=== PATIENT | female | born 1970 | race Caucasian/White ===

== ENCOUNTER 2017-10-25 17:27 | Outpatient (REF) | payer OTHER, SELFPAY ==
[2017-10-25 21:10] LABS: Abs Immature Grans 0.01 k/cumm (0.0-0.09); Absolute Basophil Count 0.02 k/cumm (0.0-0.2); Absolute Eosinophil Count 0.21 k/cumm (0.0-0.7); Absolute Lymphocyte Count 2.18 k/cumm (1.2-3.4); Absolute Monocyte Count 0.72 k/cumm (0.11-0.7); Absolute Neutrophil Count 5.48 k/cumm (1.2-6.7); Basophils % 0.2; Eosinophils % 2.4; HCT 42.5 % (36.0-46.0); HGB 13.8 g/dL (12.0-15.5); Immature Grans % 0.1; Lymphocytes % 25.3; Mean Corp. HGB Concentration 32.5 g/dL (32.0-36.0); Mean Corpuscular Hemoglobin 28.4 pg (27.0-33.0); Mean Corpuscular Volume 87.4 fL (80-95); Mean Platelet Volume 10.4 fL (8.0-11.0); Monocytes % 8.4; Neutrophils % 63.6; Platelet Count 378 x1000/uL (130-400); RBC 4.86 m/cumm (4.00-5.20); RBC Distribution Width 14.3 % (11.7-14.6); White Blood Cell Count 8.62 k/cumm (4.4-10.8)
[2017-10-25 21:25] LABS: Iron 63 ug/dL (50-175); Total Iron Binding Capacity 372 ug/dL (250-450); Transferrin Sat 17 % (15-50)
[2017-10-25 21:38] LABS: Anion Gap 10.9 mmol/L (3-11); BUN 17 mg/dL (7-18); CO2 25.1 mmol/L (21.0-32.0); CREATININE 0.87 mg/dL (0.55-1.02); Calcium 9.2 mg/dL (8.5-10.1); Chloride 104 mmol/L (98-107); Ferritin 114 ng/mL (8-388); Glucose 83 mg/dL (70-100); Potassium 4.1 mmol/L (3.5-5.1); Sodium 140 mmol/L (136-145); TSH (W/Ref FT4) 4.79 uIU/mL (0.358-3.74)
[2017-10-25 21:55] LABS: FREE T4 0.84 ng/dL (0.76-1.46)
== END 2017-10-25 17:47 ==
LOC: NCHCN 17:27
PROVIDERS: PCP Nurse Practitioner Family; Visit Provider Nurse Practitioner Family
DX: R55 Syncope and collapse (principal); G47.62 Sleep related leg cramps; G43.909 Migraine, unspecified, not intractable, without status migrainosus; I10 Essential (primary) hypertension; E66.9 Obesity, unspecified
CPT/HCPCS: 80048; 82728; 83540; 83550; 83735; 84439; 84443; 85025

== ENCOUNTER 2017-11-16 09:56 | Outpatient (REF) | payer OTHER, SELFPAY ==
--- NOTE | 2017-11-16 09:30 | PAPFT_PTH ---
PATIENT: Madison Yost LOC: [facility] U#:[id number] AGE/SX: 47/F ROOM: RE11/16/[address]: ELLY Leone : 1970 BED: DIS: 11/16/2017 SPEC #: [id number] RECD: 11/16/17 12:56 STATUS: SHARONA REQ #: [id number] FUNMILAYO: 11/16/17 09:[address]: Amira Palomino DEPT: [facility] Cytology RECD BY: Yara Doss ENTERED: 11/16/17 12:56 SP TYPE: PAPFT OTHR DR: Sheron Benoit Tissues: 1 - CX/ENDOCX FOR PAP SMEARS Procedures: PAP THIN PREP/[facility] Screening HPV DNA PROBE Comments: [id number]
== END 2017-11-16 10:16 ==
LOC: LBN 09:56
PROVIDERS: PCP Nurse Practitioner Family; Visit Provider Nurse Practitioner Family
DX: Z12.4 Encounter for screening for malignant neoplasm of cervix (principal); Z11.51 Encounter for screening for human papillomavirus (HPV)
CPT/HCPCS: 88142; 87624

== ENCOUNTER 2019-06-21 09:00 | Outpatient (REF) | payer OTHER, SELFPAY ==
[2019-06-21 21:43] LABS: Anion Gap 8.5 mmol/L (3-11); BUN 16 mg/dL (7-18); CO2 27.5 mmol/L (21.0-32.0); CREATININE 0.99 mg/dL (0.55-1.02); Calcium 9.5 mg/dL (8.5-10.1); Calculated LDL 162 mg/dL (<100); Chloride 102 mmol/L (98-107); Cholesterol 250 mg/dL (<200); Estimated GFR 59.14 (mL/min/1.73m2); Glucose 116 mg/dL (74-106); HDL Cholesterol 55 mg/dL (40-60); Potassium 4.7 mmol/L (3.5-5.1); Sodium 138 mmol/L (136-145); TSH 3.54 uIU/mL (0.36-3.74); Triglyceride 165 mg/dL (<150); Vitamin B12 352 pg/mL (193-986)
== END 2019-06-21 09:20 ==
LOC: NCHCN 09:00
PROVIDERS: PCP Nurse Practitioner Family; Visit Provider Nurse Practitioner Family
DX: Z00.00 Encounter for general adult medical examination without abnormal findings (principal); E03.9 Hypothyroidism, unspecified; I10 Essential (primary) hypertension; E66.9 Obesity, unspecified
CPT/HCPCS: 80048; 80061; 82607; 84443

== ENCOUNTER 2020-12-17 10:31 | Outpatient (REF) | payer OTHER, SELFPAY ==
[2020-12-18 04:44] LABS: COMMENT (LAB VIEW ONLY) 128.51 mg/dL; Microalb ug/mg Crea 2.2 ug/mg Cr
== END 2020-12-17 10:32 | disposition home or self-care (01) ==
LOC: NCHCN 10:31
PROVIDERS: PCP Nurse Practitioner Family; Visit Provider Nurse Practitioner Family
DX: I10 Essential (primary) hypertension (principal)
CPT/HCPCS: 82043; 82570

== ENCOUNTER 2021-06-27 10:49 | Outpatient (REF) | payer OTHER, SELFPAY ==
[2021-06-27 16:18] LABS: Calculated LDL 167 mg/dL (<100); Cholesterol 259 mg/dL (<200); HDL Cholesterol 67 mg/dL (40-60); TSH (W/Ref FT4) 2.58 uIU/mL (0.36-3.74); Triglyceride 129 mg/dL (<150)
== END 2021-06-27 10:50 | disposition home or self-care (01) ==
LOC: NCHCN 10:49
PROVIDERS: PCP Nurse Practitioner Family; Visit Provider Nurse Practitioner Family
DX: E03.9 Hypothyroidism, unspecified (principal); E78.5 Hyperlipidemia, unspecified; I10 Essential (primary) hypertension; R55 Syncope and collapse
CPT/HCPCS: 80061; 84443

== ENCOUNTER → 2022-01-28 01:03 | Outpatient (CLI) | payer OTHER, SELFPAY ==
--- NOTE | 2022-01-28 09:15 | DI.MAMMO_ITS ---
Exam(s) MAMMO SCREENING EXAM: MAMMO SCREENING CLINICAL HISTORY: SCREENING, Z12.39; FAMILY H/O BREAST CA. TECHNIQUE: Bilateral full field digital CC and MLO mammographic images were obtained with 3D tomosyn thesis and utilizing computer aided detection (CAD). COMPARISON: None available. Last mammogram was 2008. FINDINGS: There has been no significant change in the appearance and distribution of the fibroglandular tissue. There are no concerning spiculated masses nor malignant appearing microcalcification groups. There is no significant architectural distortion nor skin thickening-retraction. IMPRESSION: No radiographic evidence of malignancy. BI-RADS Category 1 - Negative Breast Density - Category B - Scattered areas of fibroglandular density Breast density Category C or D implies that the patient has dense breast tissue. Dense breast tissue can make it harder to find cancer on a mammogram. Dense breast tissue is also associated with an incr eased risk of breast cancer. This information about the result of the mammogram report was provided to the patient to raise their awareness. Use this report when you speak with the patient about their risks for breast cancer, which includes their family history. At that time, you may recommend additional screening tests (Ultrasoun d or MRI) as these tests may add significant information. A negative radiographic report should not delay biopsy if a dominant or clinically suspicious mass is present. Up to ten percent of cancers are not identified on mammography. A negative report may reinforce clinical impression. Adenosis and dense breasts may obscure an underlying neoplasm. False positive reports average 6 to 10%. Patient will receive a letter notifying them of these results.
== END ==
PROVIDERS: PCP Nurse Practitioner Family; Visit Provider Nurse Practitioner Family
DX: Z12.31 Encounter for screening mammogram for malignant neoplasm of breast (principal)
CPT/HCPCS: 77063; 77067

== ENCOUNTER 2022-09-28 20:58 | Outpatient (REF) | payer OTHER, SELFPAY | END 2022-09-28 20:59 | disposition home or self-care (01) | LOC: NCHCN 20:58 | PROVIDERS: PCP Nurse Practitioner Family; Visit Provider Nurse Practitioner Family | DX: R30.0 Dysuria (principal) | CPT/HCPCS: 87086 ==

== ENCOUNTER 2023-12-21 13:15 | Outpatient (REF) | payer OTHER, SELFPAY ==
[2023-12-21 14:50] LABS: Bilirubin Negative (Negative); Blood Negative (Negative); Clarity Clear (Clear); Glucose Negative (Negative); Ketones Negative (Negative); Leukocyte Esterase Negative (Negative); Nitrite Negative (Negative); Specific Gravity <= 1.005 (1.005-1.025); Urobilinogen 0.2 mg/dL (Up to 0.2); pH 5.5 (5-8)
[2023-12-21 15:35] LABS: ALT 40 U/L (14-59); AST 29 U/L (15-37); Alkaline Phosphatase 107 U/L (46-116); BUN 14 mg/dL (7-18); Bilirubin, Total 0.35 mg/dL (0.2-1.0); CREATININE 0.9 mg/dL (0.55-1.02); Calcium 9.6 mg/dL (8.5-10.1); Calculated LDL 165 mg/dL (<100); Chloride 105 mmol/L (98-107); Cholesterol 271 mg/dL (<200); Glucose 82 mg/dL (74-106); HDL Cholesterol 69 mg/dL (40-60); Potassium 4.3 mmol/L (3.5-5.1); Sodium 142 mmol/L (136-145); TSH (W/Ref FT4) 4.72 uIU/mL (0.36-3.74); Triglyceride 189 mg/dL (<150)
[2023-12-21 17:07] LABS: COMMENT (LAB VIEW ONLY) 16.37 mg/dL; Microalb ug/mg Crea 11.6 ug/mg Cr
[2023-12-21 17:08] LABS: FREE T4 0.73 ng/dL (0.76-1.46)
[2023-12-21 17:55] LABS: Hemoglobin A1C 5.5 % (<5.7)
== END 2023-12-21 13:16 | disposition home or self-care (01) ==
LOC: NCHCN 13:15
PROVIDERS: PCP Nurse Practitioner Family; Visit Provider Nurse Practitioner Family
DX: I10 Essential (primary) hypertension (principal); E03.9 Hypothyroidism, unspecified; E66.9 Obesity, unspecified; R79.89 Other specified abnormal findings of blood chemistry
CPT/HCPCS: 80053; 80061; 81003; 82043; 82570; 83036; 84439; 84443

== ENCOUNTER 2024-12-19 17:15 | Outpatient (REF) | payer OTHER, SELFPAY ==
[2024-12-19 21:17] LABS: Glucose Negative (Negative)
[2024-12-19 21:34] LABS: TSH (W/Ref FT4) 5.68 uIU/mL (0.55-4.78)
[2024-12-19 22:20] LABS: Microalb ug/mg Crea 3.4 ug/mg Cr
[2024-12-19 22:52] LABS: Hemoglobin A1C 5.5 % (<5.7)
== END 2024-12-19 17:16 | disposition home or self-care (01) ==
LOC: NCHCN 17:15
PROVIDERS: PCP Nurse Practitioner Family; Visit Provider Nurse Practitioner Family
DX: E03.8 Other specified hypothyroidism (principal); E66.9 Obesity, unspecified; I10 Essential (primary) hypertension
CPT/HCPCS: 81003; 82043; 82570; 83036; 84439; 84443

== ENCOUNTER → 2025-01-30 00:45 | Outpatient (CLI) | payer OTHER, SELFPAY ==
--- NOTE | 2025-01-30 08:10 | DI.MAMMO_ITS ---
Exam(s) MAMMO SCREENING EXAM: MAMMO SCREENING CLINICAL HISTORY: FAMILY HISTORY OF BREAST CANCER, Z80.3. TECHNIQUE: Bilateral full field digital CC and MLO mammographic images were obtained with 3D tomosynthesis and utilizing computer aided detection (CAD). COMPARISON: Prior mammograms were reviewed. FINDINGS: No new right breast findings. In the left breast there is the well-defined noncalcified 5 by 3 mm nodule located 5 cm in from the nipple, slightly lateral of center as seen on the CC view. Further imaging recommended. There are no malignant-appearing microcalcification groups in either breast. There is no significant architectural distortion nor skin thickening-retraction. IMPRESSION: 1. No radiographic evidence of malignancy in the right breast. 2. 5 x 3 mm left breast nodule as described above. Spot compression CC view and ultrasound recommended. BI-RADS Category 0 - Incomplete: Need additional imaging evaluation Breast Density - Category B - There are scattered areas of fibroglandular density. Breast density Category C or D implies that the patient has dense breast tissue. Dense breast tissue can make it harder to find cancer on a mammogram. Dense breast tissue is also associated with an increased risk of breast cancer. This information about the result of the mammogram report was provided to the patient to raise their awareness. Use this report when you speak with the patient about their risks for breast cancer, which includes their family history. At that time, you may recommend additional screening tests (Ultrasound or MRI) as these tests may add significant information. A negative radiographic report should not delay biopsy if a dominant or clinically suspicious mass is present. Up to ten percent of cancers are not identified on mammography. A negative report may reinforce clinical impression. Adenosis and dense breasts may obscure an underlying neoplasm. False positive reports average 6 to 10%. Patient will receive a letter notifying them of these results.
== END ==
PROVIDERS: PCP Nurse Practitioner Family; Visit Provider Nurse Practitioner Family
DX: Z80.3 Family history of malignant neoplasm of breast (principal); Z12.31 Encounter for screening mammogram for malignant neoplasm of breast
CPT/HCPCS: 77063; 77067

== ENCOUNTER → 2025-02-07 09:34 | Outpatient (CLI) | payer OTHER, SELFPAY ==
--- NOTE | 2025-02-07 | DI.MAMMO_ITS ---
Exam(s) MG MAMMO SCREEN CALL BACK UNI US BREAST LT COMPLETE EXAM: MG MAMMO SCREEN CALL BACK UNI CLINICAL HISTORY: R92.ABN mammo, LT breast nodule 5X3 mm 5cm from nipple. TECHNIQUE: Craniocaudal and mediolateral oblique spot compression digital Mammography views of the left breast with Tomosynthesis and left breast ultrasound. COMPARISON: MG MG MAMMO SCREENING from 01/28/2022 MG MG MAMMO SCREENING from 01/30/2025 US US BREAST LT COMPLETE from 02/07/2025 FINDINGS: Mammography/Tomosynthesis: Masses: There is a small circumscribed nodule in the superior central left breast, 12 o'clock position. Architectural Distortion: None seen. Microcalcifictions: No suspicious pleomorphic-type are seen. Skin Thickening/Nipple Retraction: None. Left breast US: Echotexture: Normal appearance of the glandular tissue. Shadowing: No suspicious foci. Cyst: 4 x 3 x 4 millimeter cluster of microcysts in the 12 o'clock position, 3 cm from the nipple, corresponding to the mammographic nodule. Solid lesions: None seen. Ductal dilation: None. IMPRESSION: 1. No evidence of malignancy is noted. 2. The findings were discussed with the patient on the date of the examination. BI-RADS Category 3 - 6 month - Probably Benign Finding: Recommend follow-up mammography in 6 months Breast Density - Category B - There are scattered areas of fibroglandular density. Breast density Category C or D implies that the patient has dense breast tissue. Dense breast tissue can make it harder to find cancer on a mammogram. Dense breast tissue is also associated with an increased risk of breast cancer. This information about the result of the mammogram report was provided to the patient to raise their awareness. Use this report when you speak with the patient about their risks for breast cancer, which includes their family history. At that time, you may recommend additional screening tests (Ultrasound or MRI) as these tests may add significant information. A negative radiographic report should not delay biopsy if a dominant or clinically suspicious mass is present. Up to ten percent of cancers are not identified on mammography. A negative report may reinforce clinical impression. Adenosis and dense breasts may obscure an underlying neoplasm. False positive reports average 6 to 10%. Patient will receive a letter notifying them of these results.
== END ==
LOC: DI 09:34
PROVIDERS: PCP Nurse Practitioner Family; Visit Provider Nurse Practitioner Family
DX: Z12.31 Encounter for screening mammogram for malignant neoplasm of breast (principal)
CPT/HCPCS: 76642; 77063; 77067